=== PATIENT | female | born 1980 | race Native Hawaiian/Other Pacific Islander ===

== ENCOUNTER 2019-04-29 14:21 | Emergency (ER) | payer OTHER ==
[~2019-04-29] VITALS: Ht 160 cm; Wt 54.4 kg
[2019-04-29 14:23] VITALS: Ht 160 cm; Wt 54.4 kg
[2019-04-29 16:05] VITALS: BP 120/71
== END 2019-04-29 16:05 | disposition home or self-care (01) ==
LOC: ED 14:21
DX: M54.32 Sciatica, left side (principal); E11.9 Type 2 diabetes mellitus without complications; Z98.890 Other specified postprocedural states
CPT/HCPCS: J2270; Q0162